=== PATIENT | female | born 1980 | race Caucasian/White ===

== ENCOUNTER 2021-12-02 04:01 | Day surgery (SDC) | payer OTHER ==
[2021-11-30 13:00] VITALS: BMI 21.8
[2021-12-02] MEDS ORDERED: MIDAZOLAM HCL 2 MG/2 ML SINGLE DOSE VIAL ONE (14:45)
[2021-12-02] MEDS ORDERED: LIDOCAINE HCL/PF 2% SDV 5ML VIAL ONE (14:45)
[2021-12-02] MEDS ORDERED: DEXAMETHASONE SOD PHOSPHATE 4 MG/1 ML VIAL ONE (14:45)
[2021-12-02] MEDS ORDERED: PROPOFOL 20 ML ONE (14:45)
[2021-12-02] MEDS ORDERED: ONDANSETRON 4 MG/2 ML VIAL IVPUSH PRN (14:53)
[2021-12-02] MEDS ORDERED: oxyCODONE HCL 5 MG TABLET PO PRN ×2 (14:53)
[2021-12-02] MEDS ORDERED: LACTATED RINGERS SOLUTION 1,000 ML IV SCH (15:00)
[2021-12-02] MEDS ORDERED: ceFAZolin SODIUM 1 GM VIAL ONE (15:08)
[2021-12-02] MEDS ORDERED: ceFAZolin SODIUM 1 GM VIAL IVPB ONE (15:10)
[2021-12-02] MEDS ORDERED: KETOROLAC TROMETHAMINE 30 MG/1 ML VIAL ONE (15:42)
[2021-12-02] MEDS ORDERED: FENTANYL CITRATE/PF 50 MCG/ML VIAL ONE ×2 (16:06→16:45)
[2021-12-02] MEDS ORDERED: ACETAMINOPHEN 325 MG TABLET (FP) PO PRN (16:21)
[2021-12-02] MEDS ORDERED: IBUPROFEN 600 MG TABLET (FP) PO PRN (16:21)
[2021-12-02] MEDS ORDERED: IBUPROFEN 800 MG/8 ML IJ IVPB PRN (16:21)
[2021-12-02] MEDS ORDERED: oxyCODONE HCL 5 MG TABLET ONE (18:32)
[2021-12-02 18:45] VITALS: BP 127/79; PULSE 88; TEMP 97.7
== END 2021-12-02 19:10 | disposition home or self-care (01) ==
LOC: JASU-SURG 04:01
PROVIDERS: ATTEND Obstetrics & Gynecology
PROC: 0UN98ZZ Release Uterus, Via Natural or Artificial Opening Endoscopic (ICD-10-PCS; principal; 2021-12-02 14:30)
PROC: 0UDB7ZX Extraction of Endometrium, Via Natural or Artificial Opening, Diagnostic (ICD-10-PCS; 2021-12-02 14:30)
PROC: 0UJD8ZZ Inspection of Uterus and Cervix, Via Natural or Artificial Opening Endoscopic (ICD-10-PCS; 2021-12-02 14:30)
DX: N92.0 Excessive and frequent menstruation with regular cycle (principal); D25.2 Subserosal leiomyoma of uterus
CPT/HCPCS: 81025; 82962; 88305-TC; 94760

== ENCOUNTER 2022-04-04 20:27 | Emergency (ER) | payer OTHER ==
[2022-04-04 20:33] VITALS: BP 121/80; PULSE 82; RESP 18; TEMP 98.3; BMI 22.1
[2022-04-04] MEDS ORDERED: LIDOCAINE HCL 1%, 10 MG/ML (20ML VIAL) ONE (21:27)
[2022-04-04] MEDS ORDERED: cefTRIAXone SODIUM 1 GM VIAL ONE (21:27)
[2022-04-04 22:04] LABS: EPI CELLS 4 /uL (0-25.1); HYALINE CASTS 0 /uL (0-3.1); URINE APPEARANCE CLEAR; URINE BACTERIA 722 /uL (0-1359); URINE BILIRUBIN NEGATIVE (NEGATIVE); URINE COLOR YELLOW; URINE GLUCOSE (UA) 3+ (NEGATIVE); URINE KETONE 1+ (NEGATIVE); URINE LEUK ESTERASE 2+ (NEGATIVE); URINE NITRITE NEGATIVE (NEGATIVE); URINE PROTEIN NEGATIVE (NEGATIVE); URINE RBC 25 /uL (0-23.9); URINE UROBILINOGEN 0.2 mg/dL (0.2-1.0); URINE WBC 561 /uL (0-25.8)
[2022-04-04 22:10] LABS: HCG,QUALITATIVE URINE Negative
== END 2022-04-04 22:38 | disposition home or self-care (01) ==
LOC: JERFT 20:27
PROC: 3E0233Z Introduction of Anti-inflammatory into Muscle, Percutaneous Approach (ICD-10-PCS; principal; 2022-04-04)
DX: N73.9 Female pelvic inflammatory disease, unspecified (principal)
CPT/HCPCS: 36415; 81003; 84703; 87070; 87077; 87086; 87205; 87491; 87591; 99284-25

== ENCOUNTER 2022-04-15 14:17 | Emergency (ER) | payer OTHER ==
[2022-04-15 14:25] VITALS: BP 139/60; PULSE 93; RESP 18; TEMP 98; BMI 21.8
== END 2022-04-15 18:38 | disposition home or self-care (01) ==
LOC: JER 14:17 → JERFT 14:17
DX: R10.2 Pelvic and perineal pain (principal)
CPT/HCPCS: 76830-TC; 99284-25